=== PATIENT | male | born 1945 | race Caucasian/White ===

== ENCOUNTER 2021-12-27 14:12 | Emergency (ER) | payer OTHER ==
[~2021-12-27 14:12] MED LIST: ASPIRIN325 M2 PO; B12,B-12,B 12500 MC1 PO; GLUCOPHAGE1000 MG PO; LIPITOR80 MG PO; LOPRESSOR50 M1 PO; PANTOPRAZOLE SO40 MG PO; PHARMASSURE FO0.4 MG PO; SLO NIACIN750 MG PO; TRANDOLAPRIL4 MG PO
[2021-12-27 14:49] LABS: BASO % 0.5 % (0.0-1.0); EOS # 0.2 10*3/uL (0.0-0.4); EOS % 2.5 % (1.0-4.0); HEMATOCRIT 46.6 % (42.0-52.0); LYMPH # 2.1 10*3/uL (1.3-4.4); LYMPH % 26.3 % (27.0-41.0); MEAN CELL VOLUME 94.3 fl (80.0-94.0); MEAN CORPUSCULAR HGB CONC 33.9 g/dl (33.0-37.0); MEAN PLATELET VOLUME 10.6 fl (9.6-12.3); MONO # 0.6 10*3/uL (0.1-1.0); NEUT % 62.5 % (47.0-73.0); PLATELET COUNT AUTOMATED 162 10*3/uL (130-400); RED BLOOD COUNT 4.94 10*6/uL (4.50-5.90); RED CELL DISTRI WIDTH 13.6 % (0-14.5)
[2021-12-27 15:13] LABS: CREATININE 1.46 mg/dL (0.70-1.30); TOTAL PROTEIN 7.3 gm/dL (6.4-8.2)
[2021-12-27 16:53] LABS: BILIRUBIN Negative (Negative); BLOOD 2+ (Negative); CLARITY Clear (Clear); COLOR Yellow (Yellow); GLUCOSE 3+ (Negative); KETONE Trace (Negative); LEUKO ESTERASE Negative (Negative); NITRITE Negative (Negative); SPECIFIC GRAVITY >= 1.030 (1.001-1.030); UROBILINOGEN 0.2 E.U./dl (0.0-1.0)
[2021-12-27 17:14] LABS: BACTERIA 1+
[2021-12-27 17:15] LABS: EPITHELIAL CELLS 0-2
[2021-12-27] MEDS ORDERED: FLOMAX0.4 MG PO (17:58)
[2021-12-27] MEDS ORDERED: HYDROCODONE-AC1 EAC1 PO (17:58)
== END 2021-12-27 17:09 | disposition home or self-care (01) ==
LOC: ED 14:12
PROVIDERS: Physician Assistant
DX: N23 Unspecified renal colic (principal); Z90.49 Acquired absence of other specified parts of digestive tract; Z91.041 Radiographic dye allergy status; Z79.899 Other long term (current) drug therapy; Z79.82 Long term (current) use of aspirin

== ENCOUNTER → 2022-02-18 | Outpatient (CLI) | payer OTHER ==
[~2022-02-18] MED LIST changes: +FLOMAX0.4 MG PO; +HYDROCODONE-AC1 EAC1 PO
[2022-02-18 10:11] LABS: BASO % 0.5 % (0.0-1.0); EOS # 0.3 10*3/uL (0.0-0.4); EOS % 4.1 % (1.0-4.0); HEMATOCRIT 46.4 % (42.0-52.0); LYMPH # 2.2 10*3/uL (1.3-4.4); LYMPH % 35.7 % (27.0-41.0); MEAN CELL VOLUME 93.4 fl (80.0-94.0); MEAN CORPUSCULAR HGB CONC 33.2 g/dl (33.0-37.0); MEAN PLATELET VOLUME 10.4 fl (9.6-12.3); MONO # 0.6 10*3/uL (0.1-1.0); MONO % 10.1 % (3.0-9.0); NEUT % 49.3 % (47.0-73.0); PLATELET COUNT AUTOMATED 168 10*3/uL (130-400); RED BLOOD COUNT 4.97 10*6/uL (4.50-5.90); RED CELL DISTRI WIDTH 12.6 % (0-14.5); WHITE BLOOD COUNT 6.1 10*3/uL (4.8-10.8)
[2022-02-18 10:13] LABS: BILIRUBIN Negative (Negative); BLOOD Negative (Negative); CLARITY Clear (Clear); COLOR Yellow (Yellow); GLUCOSE 3+ (Negative); KETONE Negative (Negative); LEUKO ESTERASE Negative (Negative); NITRITE Negative (Negative); UROBILINOGEN 0.2 E.U./dl (0.0-1.0)
[2022-02-18 10:30] LABS: RBC 0-2 rbc/hpf (0-2)
[2022-02-18 10:49] LABS: ALKALINE PHOSPHATASE 53 U/L (45-117); BUN 15 mg/dl (7-24); CHLORIDE 109 mmol/L (98-107); CREATININE 1.33 mg/dL (0.70-1.30); POTASSIUM 4.4 mmol/L (3.5-5.1); SGOT/AST 21 IU/L (3-35); SGPT/ALT 46 U/L (12-78); SODIUM 141 mmol/L (136-145); T3 UPTAKE 37 % (31-39); TOTAL PROTEIN 7.3 gm/dL (6.4-8.2)
== END | disposition home or self-care (01) ==
LOC: LAB 09:32
PROVIDERS: ATTEND Urology
DX: N20.0 Calculus of kidney (principal); Z12.5 Encounter for screening for malignant neoplasm of prostate; R31.9 Hematuria, unspecified

== ENCOUNTER → 2022-02-21 | Outpatient (CLI) | payer OTHER ==
[2022-03-07 00:05] LABS: BUSHITE 0.03 ratio (0.00-3.00); CALCIUM OXALATE 1.49 ratio (0.00-6.00); CALCIUM, URINE 2.7 mg/dL (Not Estab.); CITRIC ACID (CITRATE) 717 mg/24 hr (320-1240); CREATININE, URINE 70.1 mg/dL (Not Estab.); MAGNESIUM, URINE 2.5 mg/dL (Not Estab.); MONOSODIUM URATE 1.57 ratio (0.00-4.00); OSMOLALITY, URINE 708 (300-900); SODIUM, URINE 114 mmol/L (Not Estab.); SODIUM, URINE 342 (58-337); STRUVITE 0.01 ratio (0.00-1.00); URIC ACID 3.38 ratio (0.00-1.20); pH 24 HR URINE 5.2 (4.5-8.0)
== END | disposition home or self-care (01) ==
LOC: LAB 09:03
PROVIDERS: ATTEND Urology
DX: N20.0 Calculus of kidney (principal); R31.9 Hematuria, unspecified

== ENCOUNTER → 2022-03-16 | Outpatient (CLI) | payer OTHER | END | disposition home or self-care (01) | LOC: CT 01:13 | PROVIDERS: ATTEND Urology | DX: N48.89 Other specified disorders of penis (principal); J84.10 Pulmonary fibrosis, unspecified ==